=== PATIENT | female | born 1960 | race Caucasian/White ===

== ENCOUNTER 2016-10-30 04:18 | Day surgery (SDC) | payer OTHER ==
[2016-10-28 10:16] LABS: HEMOGLOBIN 13.6 g/dL (12.0-16.0)
[2016-10-28 10:27] LABS: BUN (BLOOD UREA NITROGEN) 12 MG/DL (6-23); CALCIUM, SERUM 8.9 MG/DL (8.5-10.4); CHLORIDE, SERUM 111 MMOL/L (96-112); CO2 (CARBON DIOXIDE) 25 MMOL/L (24-34); CREATININE 0.87 MG/DL (0.55-1.02); GFR AFRICAN AMERICAN 85 ML/MIN (>=60); GFR NON AFRICAN AMERICAN 73 ML/MIN (>=60); GLUCOSE, SERUM 89 MG/DL (60-99); POTASSIUM, SERUM 3.6 MMOL/L (3.5-5.3); SODIUM, SERUM 141 MMOL/L (135-148)
--- NOTE | ~2016-10-30 | OP ---
Record Of [facility] [address] [place] [address] NAME: JAY MEDINA : 56 STATUS : [facility]#: [id number] AGE: 56 ADM/REG DATE : 10/30/16 MR#: [id number] REPORT SERV DATE: 11/03/16 DICTATED BY: МАРИНА CORONADO II DATE: 11/03/16 REPORT STATUS : Draft TRANSCRIBED BY: MARILIA DATE: 11/03/16 DATE OF PROCEDURE: 10/30/2016 PREOPERATIVE DIAGNOSIS: Radiculitis lower extremity with history of lumbar fusion. POSTOPERATIVE DIAGNOSIS: Radiculitis lower extremity with history of lumbar fusion. PROCEDURE: 1. Percutaneous placement of two spinal column stimulator leads. 2. Placement of battery generator. SURGEON: Марина Coronado M.D. FLUIDS: 1400 mL LR. ESTIMATED BLOOD LOSS: 10 mL. DRAINS: None. COMPLICATIONS: None. ANTIBIOTIC: Preoperatively. PREOPERATIVE HISTORY: This is a very friendly, 56-year-old female, who presents for spinal column stimulator placement. She did very well with her trial placement. DESCRIPTION OF PROCEDURE: At this point, the patient was placed on the operating room table after general anesthesia was achieved. The back was prepped and draped in a sterile fashion. The fluoroscopy was brought into place and the incision made in the upper lumbar spine. The fascia was then incised and using the loss of resistance technique with fluoroscopy, the epidural space was identified. The electrode was now placed along the dorsal columns to overlie the T8 and T9 vertebral bodies. A second lead was then placed through a separate needle. The battery pocket was now developed and the leads subcutaneously tunneled down to the battery and connected to the battery. The system was found to be functional. Following irrigation, the standard closure was performed. At this point, the patient was then extubated and transferred to PACU in stable condition. JOYCE/MARILIA Марина Coronado II, M.D. Record Of [facility] [address] [place]. [address] NAME: JAY MEDINA : 56 STATUS : [facility]#: [id number] AGE: 56 ADM/REG DATE : 10/30/16 MR#: [id number] REPORT SERV DATE: 11/03/16 DICTATED BY: МАРИНА CORONADO II DATE: 11/03/16 REPORT STATUS : Draft TRANSCRIBED BY: MARILIA DATE: 11/03/16 / [id number] CC: Sada Mccabe II, CINDY MARIE
[~2016-10-30 04:18] MED LIST: AMB10 PO; BENTYL10 PO; BUDEPRION150 MG PO; CELEXA40 MG PO; CLARIT10 PO; CYMBALTA60 PO; DIFLUNISAL500 MG OR; ESKALITH PO; HYDROCHLOROT50 MG PO; IBU-200200 MG PO; KLONO5 PO; LIPITOR40 PO; MOBIC15 MG PO; MSCONT15 PO; PCET PO; PRILO PO; QUESTRAN4 GM PO; TOPAMAX50 MG PO; V2 PO; WELCHOL 625 MG625 MG PO; WELCHOL625 MG PO; ZANAFLEX 4 MG TA4 MG PO
== END 2016-10-30 12:29 | disposition home or self-care (01) ==
LOC: SDC 04:18
PROVIDERS: Orthopaedic Surgery
PROC: 0JH70BZ Insertion of Single Array Stimulator Generator into Back Subcutaneous Tissue and Fascia, Open Approach (ICD-10-PCS; 2016-10-30)
PROC: 00HU3MZ Insertion of Neurostimulator Lead into Spinal Canal, Percutaneous Approach (ICD-10-PCS; 2016-10-30)
PROC: 00HU3MZ Insertion of Neurostimulator Lead into Spinal Canal, Percutaneous Approach (ICD-10-PCS; principal; 2016-10-30 05:45)
DX: Z46.2 Encounter for fitting and adjustment of other devices related to nervous system and special senses (principal); M54.10 Radiculopathy, site unspecified; I10 Essential (primary) hypertension; E78.00 Pure hypercholesterolemia, unspecified; F31.9 Bipolar disorder, unspecified; Z98.1 Arthrodesis status; Z88.5 Allergy status to narcotic agent; Z79.899 Other long term (current) drug therapy
CPT/HCPCS: 80048; 85014; 85018; 93005; C1767; C1778; C1787; J0690; J2250; J2405; J2710; J3010; J3370